=== PATIENT | female | born 1945 | race Two or more races ===

== ENCOUNTER 2018-04-05 11:07 | Outpatient (CLI) | payer OTHER ==
[~2018-04-05 11:07] MED LIST: ACTONEL5 MG; ALBUTEROL25 GM; ARICEPT10 MG; DOLOGESIC 500-1 EACH PO; MODAFINIL200 MG; NABUMETONE500 MG PO; NAMENDA5 MG; PEPCID40 MG; PERCOCET 5/3251 TAB PO; PREDNISOLONE5 GM; SINGULAIR10 MG; SYNTHROID50 MCG
== END 2018-04-05 11:14 | disposition home or self-care (01) ==
LOC: RAD 501 11:07
DX: R10.2 Pelvic and perineal pain (principal)

== ENCOUNTER 2018-09-20 11:13 | Outpatient (CLI) | payer OTHER | END 2018-09-20 11:28 | disposition home or self-care (01) | LOC: SONOGRAMA 11:13 | DX: N18.3 Chronic kidney disease, stage 3 (moderate) (principal) ==

== ENCOUNTER 2020-03-31 15:31 | Outpatient (CLI) | payer OTHER | END 2020-03-31 16:05 | disposition home or self-care (01) | LOC: LAB 15:31 | PROVIDERS: ATTEND Colon & Rectal Surgery | DX: I10 Essential (primary) hypertension (principal); R15.9 Full incontinence of feces ==

== ENCOUNTER 2020-04-16 07:50 | Day surgery (SDC) | payer OTHER ==
[~2020-04-16 07:50] MED LIST changes: +ATORVASTATIN CA20 MG PO; +SYNTHROID88 MCG PO; +VIT D PO
== END 2020-04-16 17:45 | disposition home or self-care (01) ==
LOC: CIR.AMB 07:50
PROVIDERS: ATTEND Colon & Rectal Surgery
DX: K80.10 Calculus of gallbladder with chronic cholecystitis without obstruction (principal); Z20.828 Contact with and (suspected) exposure to other viral communicable diseases

== ENCOUNTER 2021-08-01 18:36 | Inpatient (IN) | payer OTHER ==
[~2021-08-01] VITALS: Ht 162.6 cm; Wt 102.1 kg
[2021-08-03] MEDS ORDERED: INDAPAMIDE2.5 MG (08:45)
[2021-08-03] MEDS ORDERED: CARVEDILOL3.125 M1 (08:45)
[2021-08-03] MEDS ORDERED: VITAMIN D31250 MCG (08:45)
[2021-08-03] MEDS ORDERED: TIMOLOL MALEATE5 M4 (08:45)
[2021-08-03] MEDS ORDERED: BRIMONIDINE TART5 M1 (08:46)
[2021-08-03] MEDS ORDERED: DEXILANT60 MG (08:46)
[2021-08-03] MEDS ORDERED: CETIRIZINE HCL10 MG (08:46)
[2021-08-03] MEDS ORDERED: DIPHENOXYLATE-1 EACH (08:46)
[2021-08-07] MEDS ORDERED: ATORVASTATIN CA20 MG PO (18:54)
[2021-08-07] MEDS ORDERED: ELIQUIS5 MG PO (18:54)
[2021-08-07] MEDS ORDERED: MONTELUKAST SOD10 MG PO (18:55)
[2021-08-07] MEDS ORDERED: CARVEDILOL3.125 MG PO (18:55)
[2021-08-07] MEDS ORDERED: XOPENEX HFA15 GM IH (18:57)
[2021-08-07] MEDS ORDERED: PEPCID AC20 MG PO (18:57)
[2021-08-07] MEDS ORDERED: ADVAIR 100-501 EACH IH (18:58)
[2021-08-07] MEDS ORDERED: MYSOLINE250 MG PO (19:00)
[2021-08-07] MEDS ORDERED: SYNTHROID88 MCG PO (19:02)
[2021-08-07] MEDS ORDERED: DYMISTA NASAL S23 GM NASAL (19:12)
[2021-08-07] MEDS ORDERED: METFORMIN HCL500 MG PO (19:21)
== END 2021-08-07 21:22 | disposition home or self-care (01) | DRG 309 ==
LOC: ER 18:36 → MEDI 08-02 14:48
PROVIDERS: ADMIT Internal Medicine; ATTEND Internal Medicine
PROC: 4A12X4Z Monitoring of Cardiac Electrical Activity, External Approach (ICD-10-PCS; principal; 2021-08-02)
PROC: B24BYZZ Ultrasonography of Heart with Aorta using Other Contrast (ICD-10-PCS; 2021-08-02)
PROC: B345ZZZ Ultrasonography of Bilateral Common Carotid Arteries (ICD-10-PCS; 2021-08-02)
DX: I48.91 Unspecified atrial fibrillation (principal); N39.0 Urinary tract infection, site not specified; E11.22 Type 2 diabetes mellitus with diabetic chronic kidney disease; I12.9 Hypertensive chronic kidney disease with stage 1 through stage 4 chronic kidney disease, or unspecified chronic kidney disease; N18.1 Chronic kidney disease, stage 1; E66.8 Other obesity; E78.00 Pure hypercholesterolemia, unspecified; M15.8 Other polyosteoarthritis; R15.9 Full incontinence of feces; G47.33 Obstructive sleep apnea (adult) (pediatric); R82.71 Bacteriuria